=== PATIENT | female | born 1965 | race Caucasian/White ===

== ENCOUNTER 2024-05-23 12:18 | Outpatient (CLI) | payer OTHER ==
[2024-05-23 13:30] LABS: #Basophils 0.05 10x3/uL (0.0-0.2); #Monocytes 0.71 10x3/uL (0.0-1.1); #Neutrophils 4.91 10x3/uL (1.5-8.4); %Basophils 0.6 % (0.0-2.0); %Eosinophils 2.4 % (0.0-6.0); %Lymphocytes 30.3 % (18.0-47.0); %Monocytes 8.4 % (0.0-10.0); %Neutrophils 57.9 % (40.0-75.0); Hematocrit 44.8 % (34.9-44.5); Hemoglobin 14.7 g/dL (12.0-15.5); Mean Corpuscular HGB CONC 32.8 g/dL (32.0-36.0); Mean Corpuscular Hemoglobin 32.6 pg (27.0-33.0); Mean Corpuscular Volume 99.3 fL (81.6-98.3); Platelet Count 340 10x3/uL (150-450); RBC Distribution Width 12.5 % (11.5-14.5); Red Blood Cell (RBC) Count 4.51 10x6/uL (3.90-5.03); White Blood Cell (WBC) Count 8.5 10x3/uL (3.5-10.5)
[2024-05-23 13:48] LABS: Anion Gap 16 mmol/L (10-20); BUN (Urea Nitrogen) 13 mg/dL (9.8-20.1); Calc. Creatinine Clearance 0 mL/min (70-130); Calcium 10.7 mg/dL (7.8-10.44); Carbon Dioxide 28 mmol/L (22-29); Chloride 98 mmol/L (98-107); Estimated GFR 98; Glucose 76 mg/dL (70-105); Sodium 138 mmol/L (136-145)
== END 2024-05-23 12:19 | disposition home or self-care (01) ==
LOC: CSHLAB 12:18
PROVIDERS: ATTEND Specialist
DX: Z01.812 Encounter for preprocedural laboratory examination (principal); C50.919 Malignant neoplasm of unspecified site of unspecified female breast
CPT/HCPCS: 80048; 85025

== ENCOUNTER 2024-05-28 07:05 | Day surgery (SDC) | payer OTHER ==
[2024-05-28] MEDS ORDERED: fentaNYL 50 mcg/mL 1 mL Vial ONE ×7 (07:18→14:20)
[2024-05-28] MEDS ORDERED: Lidocaine 1% PF 5 ML VIAL ONE (07:18)
[2024-05-28] MEDS ORDERED: PROPOFOL 20 ML ONE (07:18)
[2024-05-28] MEDS ORDERED: Rocuronium Bromide 10 MG/ML (10ML VIAL) ONE (07:18)
[2024-05-28] MEDS ORDERED: Acetaminophen 500 MG TAB ONE (07:36)
[2024-05-28] MEDS ORDERED: Ketorolac Tromethamine 30 MG (1 mL) VIAL ONE (07:36)
[2024-05-28] MEDS ORDERED: Isosulfan Blue 50 MG/5 ML VIAL ONE (07:48)
[2024-05-28] MEDS ORDERED: Bupivacaine/Epinephrine 0.25% 30 ML VIAL ONE ×2 (07:48→07:58)
[2024-05-28] MEDS ORDERED: Lidocaine 1% (PF) 30 ML VIAL ONE (07:57)
[2024-05-28] MEDS ORDERED: CEFAZOLIN 2 GM VIAL ONE (08:49)
[2024-05-28] MEDS ORDERED: Dexmedetomidine 200 MCG/2 ML VIAL ONE (09:53)
[2024-05-28] MEDS ORDERED: SUGAMMADEX SODIUM 200 MG/2 ML VIAL ONE ×2 (09:59→13:16)
[2024-05-28] MEDS ORDERED: Dexamethasone 4 mg/ml Vial ONE (10:11)
[2024-05-28] MEDS ORDERED: Ondansetron PF 4 MG/2 ML Vial ONE ×3 (10:11→12:55)
[2024-05-28] MEDS ORDERED: ePHEDrine Sulfate 50 MG/10 ML VIAL ONE (10:28)
[2024-05-28] MEDS ORDERED: Glycopyrrolate 0.2 MG/ML 5 ML SYRINGE ONE (10:30)
[2024-05-28] MEDS ORDERED: Sevoflurane 250 ML INH ANEST BOTTLE ONE (12:14)
[2024-05-28] MEDS ORDERED: oxyCODONE 5 MG TAB ONE (14:47)
== END 2024-05-28 15:45 | disposition home or self-care (01) ==
LOC: CSHSDC 07:05
PROVIDERS: ATTEND Specialist
PROC: 07B50ZZ Excision of Right Axillary Lymphatic, Open Approach (ICD-10-PCS; principal; 2024-05-28)
PROC: 0HTV0ZZ Resection of Bilateral Breast, Open Approach (ICD-10-PCS; principal; 2024-05-28)
PROC: 07B60ZZ Excision of Left Axillary Lymphatic, Open Approach (ICD-10-PCS; principal; 2024-05-28)
DX: C50.911 Malignant neoplasm of unspecified site of right female breast (principal); D05.12 Intraductal carcinoma in situ of left breast; N60.91 Unspecified benign mammary dysplasia of right breast; I10 Essential (primary) hypertension; E03.9 Hypothyroidism, unspecified; F41.9 Anxiety disorder, unspecified; Z90.710 Acquired absence of both cervix and uterus; Z98.890 Other specified postprocedural states; Z79.899 Other long term (current) drug therapy; Z87.891 Personal history of nicotine dependence; Z88.5 Allergy status to narcotic agent; Z79.890 Hormone replacement therapy
CPT/HCPCS: 78195; 88300; 88305; 88307; 88331; 88341; 88342; A6258; A9541; J1100; J1885; J2001; J2405; J2704; J3010; Q9968